=== PATIENT | male | born 1950 | race African-American/Black ===

== ENCOUNTER 2018-12-04 16:06 | Inpatient (IN) | payer MEDICARE, MEDICAID ==
[~2018-12-04] VITALS: Ht 180.3 cm; Wt 81.6 kg
[~2018-12-04 16:06] MED LIST: ASPI-1158 PO; ATOR20TA MT; B25 MT; FURO40TA5 PO; GABA-531 MT; INDA2.5T5 MT; LOSA100T32 MT; METF-416 MT; METH500T6 MT; OMEP20CA5 MT; TRAM50TA3 MT
[2018-12-04] MEDS ORDERED: ONDANSETRON HCL 4MG/2ML INJ IV STA (19:21)
[2018-12-04] MEDS ORDERED: MORPHINE SULFATE 4 MG/ML CPJ (NOT FOR IM USE) IV ONE (19:30)
[2018-12-04 20:08] LABS: CHLORIDE 95 mEq/L (98-107); INR 1.3; PROTHROMBIN TIME 12.8 sec (9.6-11.0)
[2018-12-04 20:10] LABS: EOSINOPHILS % 2.5 % (0.0-5.0); HEMATOCRIT. 39.7 % (42.0-52.0); LYMPHOCYTES % 9.5 % (20.0-50.0); MEAN CORPUSCULAR HEMOGLOBIN 33.2 pg (28.0-32.0); MEAN CORPUSCULAR VOLUME 101.4 fL (80.0-94.0); MEAN PLATELET VOLUME 8.5 fl (7.4-10.4); MONOCYTES % 9.1 % (2.0-8.0); NEUTROPHILS % 77.9 % (40.0-76.0); PLATELET 189 x1000/uL (130-400); RED BLOOD CELL COUNT 3.92 mill/uL (4.7-6.1); RED CELL DISTRIBUTION WIDTH 14.9 % (11.6-14.6)
[2018-12-04] MEDS ORDERED: HYDRALAZINE 20MG/ML VIAL IV ONE (20:30)
[2018-12-04] MEDS ORDERED: ACETAMINOPHEN 325MG TABLET PO PRN (21:45)
[2018-12-04] MEDS ORDERED: ONDANSETRON HCL 4MG/2ML INJ IV PRN (21:45)
[2018-12-04] MEDS ORDERED: DIPHENHYDRAMINE 50MG/ML VIAL IV PRN (21:45)
[2018-12-04] MEDS ORDERED: ZOLPIDEM TARTRATE 5MG TABLET PO PRN (21:45)
[2018-12-04] MEDS ORDERED: GUAIFENESIN 200MG/10ML SUGAR FREE UDC PO PRN (21:45)
[2018-12-04] MEDS ORDERED: NITROGLYCERIN 0.4MG TABLET SL SL PRN (21:45)
[2018-12-04] MEDS ORDERED: MAGNESIUM/ALUMINUM HYDROXIDE/SIMETHICONE 30ML UDC PO PRN (21:45)
[2018-12-04] MEDS ORDERED: IPRATROPIUM/ALBUTEROL 0.5-3(2.5)MG/3ML NEB NEB PRN (21:45)
[2018-12-04] MEDS ORDERED: DEXTROSE 50% WATER 50ML SYRINGE IV PRN (21:45)
[2018-12-04 22:25] LABS: T4 FREE 0.92 ng/dL (0.76-1.46)
[2018-12-04 22:35] LABS: FOLIC ACID (FOLATE) SERUM 10.5 ng/mL (>5.38)
[2018-12-04 23:39] LABS: CREATINE KINASE MB FRACTION 3.5 ng/mL (0.5-3.6)
[2018-12-05] MEDS: CLONIDINE 0.1MG TABLET PO PRN ×2 (01:29→15:15)
[2018-12-05] MEDS: MORPHINE SULFATE 2 MG/ML CPJ (NOT FOR IM USE) IV PRN (01:30)
[2018-12-05 01:36] VITALS: BP 194/105
[2018-12-05] MEDS ORDERED: AMLODIPINE 10MG TABLET PO SCH (02:00)
[2018-12-05] MEDS ORDERED: BRIM5DRO LEFTEYE (03:50)
[2018-12-05] MEDS ORDERED: XALAO LEFTEYE (03:50)
[2018-12-05] MEDS ORDERED: PRED12O LEFTEYE (03:50)
[2018-12-05 04:00] VITALS: BP 165/98
[2018-12-05] MEDS: HYDRALAZINE HCL 50MG TABLET PO SCH ×3 (05:29→21:05)
[2018-12-05] MEDS: BLOOD SUGAR DIAGNOSTIC STRIP TEST SCH ×4 (06:31→21:06)
[2018-12-05] MEDS: INSULIN LISPRO 100 UNITS/ML SUBCUT SCH ×4 (07:50→21:00)
[2018-12-05] MEDS: DOCUSATE SODIUM 100MG CAPSULE PO PRN (08:22)
[2018-12-05] MEDS: SEVELAMER CARBONATE 800 MG TABLET PO SCH ×3 (08:23→17:15)
[2018-12-05] MEDS: FAMOTIDINE 20MG TABLET PO SCH (08:23)
[2018-12-05] MEDS: FOLIC ACID/VITAMIN B COMP W-C TABLET PO SCH (08:23)
[2018-12-05] MEDS: TRAMADOL 50MG TABLET PO PRN ×2 (08:24→09:33)
[2018-12-05] MEDS: ENOXAPARIN 30MG/0.3ML SYR SUBCUT SCH (08:24)
[2018-12-05] MEDS: AMLODIPINE 10MG TABLET PO SCH (08:25)
[2018-12-05] MEDS: METOPROLOL TARTRATE 25MG TABLET PO SCH ×2 (08:25→21:05)
[2018-12-05 08:29] LABS: CREATINE KINASE MB FRACTION 2.5 ng/mL (0.5-3.6)
[2018-12-05 08:39] VITALS: BP 178/92
[2018-12-05 12:02] VITALS: BP 155/86
[2018-12-05] MEDS ORDERED: IOHEXOL-300 100 ML BOTTLE ONE (12:48)
[2018-12-05] MEDS: MINOXIDIL 2.5MG TABLET PO SCH (15:15)
[2018-12-05 15:27] VITALS: BP 173/84
[2018-12-05 20:00] VITALS: BP 160/82
[2018-12-05] MEDS ORDERED: CLONIDINE 0.2MG TABLET PO PRN (21:00)
[2018-12-05] MEDS: ATORVASTATIN CALCIUM 20MG TABLET PO SCH (21:05)
[2018-12-06] VITALS: BP 165/80
[2018-12-06 04:00] VITALS: BP 145/63
[2018-12-06] MEDS: HYDRALAZINE HCL 50MG TABLET PO SCH ×3 (06:16→22:00)
[2018-12-06] MEDS: BLOOD SUGAR DIAGNOSTIC STRIP TEST SCH ×4 (06:20→20:38)
[2018-12-06] MEDS: INSULIN LISPRO 100 UNITS/ML SUBCUT SCH ×4 (07:50→20:37)
[2018-12-06 08:00] VITALS: BP 143/78
[2018-12-06] MEDS: ENOXAPARIN 30MG/0.3ML SYR SUBCUT SCH (08:48)
[2018-12-06] MEDS: SEVELAMER CARBONATE 800 MG TABLET PO SCH ×3 (08:57→18:22)
[2018-12-06] MEDS: FOLIC ACID/VITAMIN B COMP W-C TABLET PO SCH (08:57)
[2018-12-06] MEDS: METOPROLOL TARTRATE 25MG TABLET PO SCH ×2 (08:57→20:42)
[2018-12-06] MEDS: AMLODIPINE 10MG TABLET PO SCH (08:58)
[2018-12-06] MEDS: MINOXIDIL 2.5MG TABLET PO SCH ×2 (08:58→18:22)
[2018-12-06] MEDS: FAMOTIDINE 20MG TABLET PO SCH (08:58)
[2018-12-06] MEDS: DOCUSATE SODIUM 100MG CAPSULE PO PRN (08:58)
[2018-12-06 12:56] VITALS: BP 139/82
[2018-12-06] MEDS: DORZOLAM/TIMOLOL 2.23/0.68% OPHTH DROPS 10ML LEFTEYE SCH ×2 (13:42→15:52)
[2018-12-06] MEDS: BRIMONIDINE 0.2% OPHTH DROPS 5ML LEFTEYE SCH ×2 (13:42→15:52)
[2018-12-06] MEDS: PREDNISOLONE ACETATE 1% OPHTH DROPS 5ML LEFTEYE SCH ×4 (13:42→20:40)
[2018-12-06] MEDS: CIPROFLOXACIN 0.3% OPHTH SOLN 2.5ML LEFTEYE SCH ×3 (13:43→20:41)
[2018-12-06 18:17] VITALS: BP 132/77
[2018-12-06 20:00] VITALS: BP 119/71
[2018-12-06] MEDS: ATORVASTATIN CALCIUM 20MG TABLET PO SCH (20:41)
[2018-12-06] MEDS ORDERED: LATANOPROST 0.005% OPHTH DROPS 2.5ML LEFTEYE SCH (21:00)
[2018-12-07] VITALS: BP 148/64
[2018-12-07] MEDS: DOCUSATE SODIUM 100MG CAPSULE PO PRN (01:55)
[2018-12-07] MEDS: MORPHINE SULFATE 2 MG/ML CPJ (NOT FOR IM USE) IV PRN (01:56)
[2018-12-07 04:00] VITALS: BP 135/60
[2018-12-07] MEDS: MINOXIDIL 2.5MG TABLET PO SCH (06:29)
[2018-12-07] MEDS: HYDRALAZINE HCL 50MG TABLET PO SCH (06:29)
[2018-12-07] MEDS: BLOOD SUGAR DIAGNOSTIC STRIP TEST SCH (06:55)
[2018-12-07] MEDS: INSULIN LISPRO 100 UNITS/ML SUBCUT SCH (06:56)
[2018-12-07 08:00] VITALS: BP 149/67
[2018-12-07] MEDS: SEVELAMER CARBONATE 800 MG TABLET PO SCH (08:15)
[2018-12-07] MEDS: FAMOTIDINE 20MG TABLET PO SCH (08:15)
[2018-12-07] MEDS: FOLIC ACID/VITAMIN B COMP W-C TABLET PO SCH (08:15)
[2018-12-07] MEDS: METOPROLOL TARTRATE 25MG TABLET PO SCH (08:16)
[2018-12-07] MEDS: DORZOLAM/TIMOLOL 2.23/0.68% OPHTH DROPS 10ML LEFTEYE SCH (08:17)
[2018-12-07] MEDS: BRIMONIDINE 0.2% OPHTH DROPS 5ML LEFTEYE SCH (08:17)
[2018-12-07] MEDS: CIPROFLOXACIN 0.3% OPHTH SOLN 2.5ML LEFTEYE SCH (08:18)
[2018-12-07] MEDS: PREDNISOLONE ACETATE 1% OPHTH DROPS 5ML LEFTEYE SCH (08:18)
[2018-12-07] MEDS: AMLODIPINE 10MG TABLET PO SCH (08:26)
[2018-12-07] MEDS: ENOXAPARIN 30MG/0.3ML SYR SUBCUT SCH (08:27)
[2018-12-07 10:25] VITALS: BP 149/67
[2018-12-09 08:10] LABS: CANCER ANTIGEN 125 427.6 U/mL (Not Estab.)
== END 2018-12-07 11:30 | disposition home or self-care (01) | DRG 73 ==
LOC: ER 16:06 → EDBEDREQTM 21:28 → EDBEDREQ 21:28 → SUPCPDRO 21:32 → ENRESERV 23:08 → 6WST 12-05 00:28
PROVIDERS: ADMIT Internal Medicine; ATTEND Internal Medicine
DX: E11.43 Type 2 diabetes mellitus with diabetic autonomic (poly)neuropathy (principal); N18.6 End stage renal disease; E87.1 Hypo-osmolality and hyponatremia; I13.2 Hypertensive heart and chronic kidney disease with heart failure and with stage 5 chronic kidney disease, or end stage renal disease; I50.30 Unspecified diastolic (congestive) heart failure; I67.4 Hypertensive encephalopathy; K31.84 Gastroparesis; D63.8 Anemia in other chronic diseases classified elsewhere; E11.22 Type 2 diabetes mellitus with diabetic chronic kidney disease; E78.00 Pure hypercholesterolemia, unspecified; E83.51 Hypocalcemia; I16.0 Hypertensive urgency; K74.60 Unspecified cirrhosis of liver; K21.9 Gastro-esophageal reflux disease without esophagitis; Z90.49 Acquired absence of other specified parts of digestive tract; Z79.4 Long term (current) use of insulin; Z99.2 Dependence on renal dialysis; Z85.05 Personal history of malignant neoplasm of liver; Z79.82 Long term (current) use of aspirin
CPT/HCPCS: 36415; 71045; 74177; 80061; 82105; 82550; 82553; 82607; 82746; 82962; 83036; 83540; 83550; 84439; 84443; 84484; 86304; 93005; 93306; 93970; 96374; 99291; J0360; J1650; J1815; J2270; J2405; J7620; Q9967